=== PATIENT | male | born 1950 | race Caucasian/White ===

== ENCOUNTER 2018-12-05 22:14 | Inpatient (IN) ==
[2018-12-05] MEDS ORDERED: ZOFRAN IV ONE (22:45)
[2018-12-05] MEDS ORDERED: MORPHINE IV ONE (22:45)
[2018-12-05] MEDS ORDERED: [UNRECOGNIZED DRUG - OTHER] IV ONE (22:47)
[2018-12-05] MEDS ORDERED: NS IV ONE (22:47)
[2018-12-05 23:39] LABS: BASO# 0.03 X1000 (0.0-0.2); BASO% 0.5 % (0.0-0.8); EOS# 0.48 X1000 (0.0-0.7); EOS% 7.8 % (0.0-10.0); HEMATOCRIT 42.3 % (42.0-52.0); HEMOGLOBIN 13.6 g/dL (14.0-18.0); IMM GRAN# 0.04 X1000 (0.0-0.04); IMM GRAN% 0.6 % (0.0-0.5); LYMPH# 1.02 X1000 (1.2-3.4); LYMPH% 16.5 % (20.5-51.1); MCHC 32.2 g/dL (33-37); MONO# 0.62 X1000 (0.11-0.59); MPV 9.3 FL (7.4-10.4); NEUT# 3.98 X1000 (1.4-6.5); NEUT% 64.6 % (42.2-75.2); PLT 254 X1000 (130-400); RBC 4.86 XMIL (4.7-6.1); RDW 15.2 % (11.5-14.5); WBC 6.17 X1000 (4.8-10.8)
[2018-12-05 23:46] LABS: INR 0.89; PROTIME 12.8 Seconds (11.0-16.0); PTT 41.4 Seconds (22.3-41.8)
[2018-12-05] MEDS ORDERED: DILAUDID IV ONE (23:52)
[2018-12-06] MEDS ORDERED: MORPHINE IV ONE (00:06)
[2018-12-06] MEDS ORDERED: ZOFRAN IV ONE (00:06)
[2018-12-06 01:57] LABS: ALB/GLOB RATIO 1.4; ALBUMIN 4.3 g/dL (3.5-5.0); CALCIUM 10.3 mg/dL (8.8-10.2); CREATININE 1.3 mg/dL (0.7-1.2); POTASSIUM 4.6 mmol/L (3.5-5.1); TOTAL BILIRUBIN 0.17 mg/dL (0.20-1.00); TOTAL PROTEIN 7.4 g/dL (6.3-8.3)
--- NOTE | 2018-12-06 01:57 | PROVIDER DOCUMENTATION ---
This chart was entered by Kimberly Muller Scribe, acting as scribe for Lou Presley MD. HPI-Animal/Snake Bite Injury - General Chief Complaint: Snake Bite Stated Complaint: SNAKE BITE Time Seen by Provider: 12/05/18 22:34 Patient arrived via EMS?: Yes Source: patient, family Allergies/Adverse Reactions: Patient Allergies Allergy/AdvReac Type Severity Reaction Status Date / Time No Known Allergies Allergy Verified 12/06/18 00:08 - History of Present Illness-Bite Injuries Nature of Presenting Problem: 68 yom presents w/family to er w/cc poss snake bite on 3rd toe left foot w/two puncture wounds 1 hr [employer]. pt arrived via ems. pt is in moderate amt of pain w/mod swelling to left foot. pt family sts he has renal cell carcinoma w/mets to liver, lungs and lymph nodes. pt has allergies to pesticides, no rx. Onset/Duration: just prior to arrival Timing: reports: still present Severity: moderate Quality: painful - Animal Bite Bite Injury Location: reports: feet Animal:: reports: other (snake poss copperhead) Appearance of Animal: unknown - Snake Bite Snake Bite: reports: other (poss copperhead) Bite Injury Location: reports: feet (3rd toe left foot) Severity of Bite Injury: reports: bitten Review of Systems - Adult - REVIEW OF SYSTEMS - ADULT Constitutional: reports: no symptoms reported Eyes: reports: no symptoms reported Ears, Nose, Mouth & Throat: reports: no symptoms reported Cardiovascular: reports: no symptoms reported Respiratory: reports: no symptoms reported Gastrointestinal: reports: no symptoms reported Genitourinary: reports: no symptoms reported Musculoskeletal: reports: see HPI, joint swelling (left foot) Integumentary: reports: see HPI, other (poss snake bite 3rd toe left foot) Neurological: reports: no symptoms reported Psychiatric: reports: no symptoms reported Endocrine: reports: no symptoms reported Hematologic/Lymphatic: reports: no symptoms reported Allergic/Immunologic: reports: no symptoms reported All Other Systems: Reviewed and Negative Past History - Adult - PAST MEDICAL HISTORY-ADULT Review of Records: reports: Old Records Reviewed, Nursing Assessment Review, Medications Reviewed, Social history reviewed & non-contributory. Major Childhood Illnesses: reports: denies history Cardiovascular: reports: denies history Respiratory: reports: denies history Gastrointestinal: reports: denies history Obstetrical/Gynecological: reports: denies history Genitourinary: reports: cancer (renal cell carcinoma) Musculoskeletal: reports: denies history Neurological: reports: denies history Endocrine/Immune: reports: denies history Other Conditions: reports: denies history - IMMUNIZATION STATUS Childhood Immunizations: See Nurse Assessment Flu Vaccine: See Nurse Assessment - FAMILY HISTORY Family History: reviewed, not pertinent - SOCIAL HISTORY Smoking: cigarettes, less than 1 pack/day Provider spent 3-5 mins advising pt. on dangers of tobacco.: Discussed manners to quit use, and f/u contacts for add'l counseling. Substance Use: none/never Physical Exam-General - PHYSICAL EXAM-ADULT Initial Vital Signs Reviewed: Yes - CONSTITUTIONAL General Appearance: alert, moderate distress, anxious. negative: lethargic, slow to respond, combative - EYES Eyes: PERRL/EOMI, pink conjunctivae - HEAD, EARS, NOSE, MOUTH & THROAT HENMT: normocephalic/atraumatic, moist mucous membranes, normal ENT inspection - NECK Neck: non-tender, full range of motion, supple, normal inspection - RESPIRATORY Respiratory: chest non-tender, lungs clear, normal breath sounds - CARDIOVASCULAR Cardiovascular: normal peripheral pulses, regular rate, rhythm - GASTROINTESTINAL (ABDOMEN) Abdominal Exam: normal bowel sounds, non tender, soft - LYMPHATIC Lymphatic: no adenopathy - MUSCULOSKELETAL Back Exam: normal inspection, no CVA tenderness, no vertebral tenderness Extremity: normal range of motion, swelling (left foot), tenderness (left foot). negative: non-tender, normal inspection, abnormal NV exam, inflammation, slow capillary refill Peripheral Pulses: radial (R): 2+, radial (L): 2+ - SKIN Integumentary: normal color, normal turgor, warm/dry, other (2 small puncture wounds to left foot) - NEUROLOGIC Neurologic: grossly normal, no motor/sensory deficits - PSYCHIATRIC Psych/Mental Status: normal thought content, normal thought process, oriented x 3, anxious. negative: normal mood/affect Progress - PLAN OF CARE/RESULTS Progress/Plan/Lab Results: Vital Signs - 8 hr 12/05/18 22:20 12/05/18 23:24 12/05/18 23:59 Temperature 97.7 F Pulse Rate 90 Respiratory Rate 18 Blood Pressure 157/80 156/71 155/83 O2 Sat by Pulse Oximetry 96 96 12/06/18 00:02 12/06/18 00:07 Temperature Pulse Rate Respiratory Rate Blood Pressure 158/70 159/69 O2 Sat by Pulse Oximetry 95 95 Laboratory Results - last 24 hr 12/05/18 12/05/18 12/05/18 23:15 23:15 23:15 WBC 6.17 RBC 4.86 Hgb 13.6 L Hct 42.3 MCV 87.0 MCH 28.0 MCHC 32.2 L RDW Std Deviation 15.2 H Plt Count 254 MPV 9.3 Immature Gran % (Auto) 0.6 H Neut % (Auto) 64.6 Lymph % (Auto) 16.5 L [place] % (Auto) 10.0 H Eos % (Auto) 7.8 Baso % (Auto) 0.5 Immature Gran # (Auto) 0.04 Neut # (Auto) 3.98 Lymph # (Auto) 1.02 L [place] # (Auto) 0.62 H Eos # (Auto) 0.48 Baso # (Auto) 0.03 PT 12.8 INR 0.89 PTT (Actin FS) 41.4 Fibrinogen 551.0 H Orders Category Date Time Status CBC WITH DIFF [HEME] Stat Lab 12/05/18 23:15 Completed CK PROFILE [SP CHEM] Stat Lab 12/05/18 23:15 Received COMPREHENSIVE METABOLIC PANEL [CHEM] Stat Lab 12/05/18 23:15 Received D-DIMER [COAG] Stat Lab 12/05/18 23:15 Received FIBRINOGEN [COAG] Stat Lab 12/05/18 23:15 Completed PROTIME WITH INR [COAG] Stat Lab 12/05/18 23:15 Completed PTT [COAG] Stat Lab 12/05/18 23:15 Completed URINALYSIS W/POSS RFLX CULT [URINALYSIS] Stat Lab 12/05/18 22:44 Uncollected Antivenin,Crotalidae Ld(Ovine [Crofab] 4 each Med 12/05/18 22:47 Discontinued 0.9% Sodium Chloride Inj [Ns] 250 ml IV ONCE Hydromorphone [Dilaudid] Med 12/05/18 23:52 Discontinued 1 mg IV NOW ONE Morphine Med 12/05/18 22:45 Discontinued 4 mg IV NOW ONE Morphine Med 12/06/18 00:06 Discontinued 4 mg IV NOW ONE Ondansetron [Zofran] Med 12/05/18 22:45 Discontinued 4 mg IV NOW ONE Ondansetron [Zofran] Med 12/06/18 00:06 Discontinued 4 mg IV NOW ONE Transfer/Admit Order [TRANSFER] Routine Transfer 12/06/18 01:16 Ordered Result Diagrams: 12/05/18 23:15 - REASSESSMENT Reassessment #1 Time Reassessed: 00:54 (antivenem is infusing and his local inflammation is improving the swelling regressing, ecchymosis is better. ) Status: improving - CONSULTS/PCP/HOSPITALIST Notification #1 *Consult/PCP/Hospitalist*: Dr. Horn Time Discussed: 00:31 Reason/Comments: pt discussed w/ Consult Disposition: Will see in ED Departure - Departure Date of Disposition Decision: 12/06/18 Time of Disposition Decision: 01:57 DIAGNOSIS: Snake bite Disposition: ADMITTED INPATIENT 09 Certified Medical Emergency: Emergent Condition: Stable - Critical Care Note This patient required my direct & personal management of CC.: No Attestation - Physician/ ELIZABETH Attestation Patient care was provided by Advanced Practice Provider:: No The physician spent face to face time with patient:: Yes Advanced Practice Provider documentation review:: Supervising physician onsite and consulted in the evaluation and care of this patient. The physician did have a face to face encounter with the patient. This chart was documented by the indicated scribe, (Kimberly Muller, [place]) and accurately reflects the services I performed and decisions made by me, Lou Presley MD, as attested by the provider's signature.
[2018-12-06] MEDS: DILAUDID IV PRN ×2 (03:10→07:22)
[2018-12-06 03:11] LABS: URINE SOURCE CLEAN CATCH
[2018-12-06 03:14] LABS: BILIRUBIN URINE NEGATIVE (NEGATIVE); BLOOD URINE NEGATIVE (NEGATIVE); COLOR YELLOW; GLUCOSE URINE NEGATIVE (NEGATIVE); KETONE URINE NEGATIVE (NEGATIVE); LEUKOCYTES URINE NEGATIVE (NEGATIVE); NITRITE URINE NEGATIVE (NEGATIVE); PH URINE 5.5; PROTEIN URINE 30 mg/dL (NEGATIVE); SP GRAVITY URINE 1.023; TURBIDITY URINE CLEAR (CLEAR); UROBILINOGEN URINE NORMAL (NORMAL)
[2018-12-06 03:15] LABS: UR EPITHELIAL CELLS <10 /HPF (<10); URINE BACTERIA NEGATIVE /HPF; URINE RBC <10 /HPF (<10); URINE WBC <10 /HPF (<10)
[2018-12-06 04:53] LABS: HEMATOCRIT 39.2 % (42.0-52.0); HEMOGLOBIN 12.5 g/dL (14.0-18.0); MCH 28.2 PG (27-31); MCHC 31.9 g/dL (33-37); MCV 88.3 FL (81-99); MPV 8.7 FL (7.4-10.4); PLT 253 X1000 (130-400); RBC 4.44 XMIL (4.7-6.1); WBC 12.72 X1000 (4.8-10.8)
[2018-12-06 04:54] LABS: BASO# 0.01 X1000 (0.0-0.2); BASO% 0.1 % (0.0-0.8); EOS# 0.13 X1000 (0.0-0.7); IMM GRAN# 0.04 X1000 (0.0-0.04); IMM GRAN% 0.3 % (0.0-0.5); INR 0.91; LYMPH# 0.92 X1000 (1.2-3.4); LYMPH% 7.2 % (20.5-51.1); MONO# 0.82 X1000 (0.11-0.59); MONO% 6.4 % (1.7-9.3)
[2018-12-06 04:55] LABS: PTT 34.2 Seconds (22.3-41.8)
[2018-12-06 05:13] LABS: ALB/GLOB RATIO 1.3; CALCIUM 9.6 mg/dL (8.8-10.2); CREATININE 1.2 mg/dL (0.7-1.2); POTASSIUM 4.7 mmol/L (3.5-5.1); TOTAL BILIRUBIN 0.24 mg/dL (0.20-1.00)
[2018-12-06] MEDS ORDERED: ZOFRAN IV PRN (05:24)
[2018-12-06] MEDS: NS IV SCH ×3 (05:34→17:27)
[2018-12-06] MEDS: [UNRECOGNIZED DRUG - OTHER] IV SCH ×3 (05:34→17:27)
--- NOTE | 2018-12-06 05:53 | HISTORY AND PHYSICAL ---
PRIMARY CARE PROVIDER: [facility]. CHIEF COMPLAINT: Snake bite to left foot. HISTORY OF PRESENTING ILLNESS: A 68-year-old male with a history of metastatic renal cell carcinoma who was flowering his plants earlier today when a copperhead bit him on his left foot. He was brought to the emergency department. Poison Control was called and recommended that the patient be started on CroFab. Patient subsequently will require admission to the ICU for further management. At the time of my examination, patient denied any headache, fever, chills, chest pain, or shortness of breath but complained of left foot pain. PAST MEDICAL HISTORY: Includes metastatic renal cell carcinoma. PAST SURGICAL HISTORY: Left nephrectomy. Right knee surgery. Left shoulder surgery. ALLERGIES: No known drug allergies. CURRENT MEDICATIONS: He does not recall with nursing staff. We will reconcile. SOCIAL HISTORY: 40+ pack years history of smoking. History of alcohol abuse in the past. Denies any illicit drug use. FAMILY HISTORY: No history of coronary disease. REVIEW OF SYSTEMS: Fourteen point review of system as listed in HPI. Other systems negative. PHYSICAL EXAMINATION: GENERAL: Cooperative and friendly male. He is resting more comfortably now. VITAL SIGNS: Temperature 97.7 degrees, pulse 90, respirations 18 and blood pressure 157/80. HEENT: Atraumatic, normocephalic. Extraocular movements intact. PERRLA. NECK: No masses. CHEST: Clear to auscultation. CARDIOVASCULAR: Regular rate and rhythm. ABDOMEN: Soft. Positive bowel sounds. EXTREMITIES: Left foot moderate edema, tenderness, and erythema. : No bladder distention. SKIN: Warm. LABORATORIES AND STUDIES: WBC 6.17, hemoglobin 13.6, hematocrit 42.3, and platelets 254,000. ASSESSMENT: A 68-year-old male with history of metastatic renal cell carcinoma who was flowering his plants earlier today when he was bit by a copperhead, and was brought to the emergency department. His case was discussed with Poison Control who recommended the patient start on CroFab. Subsequently, he will require admission to ICU for further management. ASSESSMENT: 1. Status post snake bite suspected copperhead. 2. Metastatic renal cell carcinoma. PLAN: 1. The patient will be admitted to medical ICU. 2. We will continue CroFab. 3. We will continue with supportive treatment with gentle hydration, antiemetics and pain control. 4. We will continue to follow and reassess. Make further recommendations based on patient's clinical course. cc: Garett Horn MD
[2018-12-06] MEDS ORDERED: OXY IR PO PRN (09:10)
[2018-12-06] MEDS ORDERED: DILAUDID IV PRN ×2 (09:13→10:19)
[2018-12-06] MEDS: MS CONTIN PO SCH ×3 (09:58→20:32)
[2018-12-06] MEDS ORDERED: ATARAX PO PRN ×2 (10:18→14:22)
[2018-12-06] MEDS: KLONOPIN PO SCH ×2 (11:32→20:30)
[2018-12-06] MEDS: SYNTHROID PO SCH (11:33)
--- NOTE | 2018-12-06 12:16 | PROGRESS NOTE ---
DATE: 12/06/2018 The patient was seen last night. Briefly, this is a 68-year-old male with a history of metastatic cancer of kidney renal cell carcinoma. He came in with a copperhead bite over his left foot right on the toe. He has 2 puncture wounds there. He is getting CroFab anti venin, and hopefully we will be able to get him stabilized. He has got a couple doses already, and 1 dose yesterday evening. He is going to get another 3 doses today. Anticipate if he is stable, likely discharge tomorrow. Repeat his labs and coag's. His pain was not under control, but he seems to have stabilized now. cc: Tl Weber MD
[2018-12-06] MEDS: NS 1,000 ML IV SCH (17:27)
[2018-12-06] MEDS ORDERED: CYMBALTA PO SCH (21:00)
[2018-12-07] MEDS: MS CONTIN PO SCH ×2 (01:09→08:59)
[2018-12-07] MEDS: NS 1,000 ML IV SCH ×2 (03:15→13:15)
[2018-12-07] MEDS: KLONOPIN PO SCH (08:40)
[2018-12-07] MEDS: SYNTHROID PO SCH (08:40)
[2018-12-07 08:59] LABS: BASO# 0.01 X1000 (0.0-0.2); BASO% 0.2 % (0.0-0.8); EOS# 0.46 X1000 (0.0-0.7); EOS% 8.8 % (0.0-10.0); HEMATOCRIT 35.4 % (42.0-52.0); HEMOGLOBIN 11.3 g/dL (14.0-18.0); LYMPH% 21.1 % (20.5-51.1); MCH 28.3 PG (27-31); MCHC 31.9 g/dL (33-37); MCV 88.5 FL (81-99); MONO# 0.52 X1000 (0.11-0.59); MPV 9.4 FL (7.4-10.4); NEUT# 3.13 X1000 (1.4-6.5); NEUT% 59.9 % (42.2-75.2); PLT 253 X1000 (130-400); RDW 15.5 % (11.5-14.5); WBC 5.22 X1000 (4.8-10.8)
[2018-12-07 09:01] LABS: PTT 40.1 Seconds (22.3-41.8)
[2018-12-07 09:02] LABS: INR 0.93; PROTIME 13.2 Seconds (11.0-16.0)
[2018-12-07 09:18] LABS: AGAP 11; ALB/GLOB RATIO 1.1; ALBUMIN 3.4 g/dL (3.5-5.0); ALKALINE PHOSPHATASE 85 U/L (32-122); BUN 20 mg/dL (8-22); CALCIUM 8.9 mg/dL (8.8-10.2); CHLORIDE 104 mmol/L (98-107); COSMO 284; GLUCOSE 129 mg/dL (70-104); GOT 9 U/L (10-34); GPT 7 U/L (10-44); POTASSIUM 3.8 mmol/L (3.5-5.1); SODIUM 140 mmol/L (136-145); TCO2 25 mmol/L (25-35); TOTAL BILIRUBIN 0.18 mg/dL (0.20-1.00); TOTAL PROTEIN 6.5 g/dL (6.3-8.3)
--- NOTE | 2018-12-07 12:04 | Diag Imaging Result Doc PS360 ---
CHEST-2 VIEWS - 12/07/2018 INDICATION: hypoxia COMPARISON: None FINDINGS: The lungs are normally expanded and clear. Heart size and mediastinal contours are normal. No pneumothorax or pleural effusion. IMPRESSION: Negative exam. Electronically signed by Harpal Dean 12/07/2018 12:01 PM
--- NOTE | 2018-12-07 15:13 | DISCHARGE SUMMARY ---
ADMISSION DATE: 12/06/2018 DISCHARGE DATE: DISCHARGE DIAGNOSES: 1. Snake bite envenomation associated with a copperhead bite. 2. Metastatic renal cell carcinoma. BRIEF HISTORY: Briefly, this is a 68-year-old male admitted per Dr. Horn on the . Snake bite was documented. Poison Control recommended CroFab. He ended up getting 3 doses I think total and had improvement. He had some intermittent I would not say hypoxia, but at least low sats, 90 to 93, and the patient was doing well. He is going to be ambulated. We will check a chest x-ray to make sure there is no significant pathology. Anticipate discharge later today. LABORATORY DATA: His hemoglobin and hematocrit 11 and 35, white count 5. Coags are normal and his basic was normal. Liver tests were normal. DISCHARGE CONDITION: Stable. FOLLOWUP: With is primary care physician in 1 to 2 weeks. He sees the [facility]. DISCHARGE MEDICATIONS: 1. Cymbalta 60. 2. Klonopin 1 b.i.d. 3. Hydroxyzine p.r.n. 4. Synthroid 100 daily. 5. MS Contin 60 t.i.d. 6. Oxycodone 30 q.4. 7. Phenergan 25 p.r.n. TIME SPENT: 32 minute. cc: Tl Weber MD [facility]
[2018-12-07 16:13] LABS: BASO# 0.02 X1000 (0.0-0.2); BASO% 0.3 % (0.0-0.8); EOS% 7.7 % (0.0-10.0); HEMATOCRIT 34.1 % (42.0-52.0); HEMOGLOBIN 10.6 g/dL (14.0-18.0); IMM GRAN# 0.02 X1000 (0.0-0.04); IMM GRAN% 0.3 % (0.0-0.5); LYMPH# 0.97 X1000 (1.2-3.4); LYMPH% 14.9 % (20.5-51.1); MCH 27.7 PG (27-31); MCHC 31.1 g/dL (33-37); MCV 89.3 FL (81-99); MONO# 0.65 X1000 (0.11-0.59); MPV 9.1 FL (7.4-10.4); NEUT# 4.34 X1000 (1.4-6.5); NEUT% 66.8 % (42.2-75.2); PLT 231 X1000 (130-400); RBC 3.82 XMIL (4.7-6.1); RDW 15.4 % (11.5-14.5)
[2018-12-07 16:32] LABS: INR 0.95; PROTIME 13.5 Seconds (11.0-16.0)
[2018-12-07 16:33] LABS: PTT 35.7 Seconds (22.3-41.8)
[2018-12-07 17:04] VITALS: BP 118/67
== END 2018-12-07 18:16 | disposition home or self-care (01) | DRG 918 ==
LOC: ED 22:14 → SUATTDRO 12-06 01:35 → ICU 12-06 01:35
PROVIDERS: ATTEND Internal Medicine